=== PATIENT | female | born 2005 | race Caucasian/White ===

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

== ENCOUNTER 2023-01-10 00:10 | Emergency (ER) | payer SELFPAY ==
[~2023-01-10] VITALS: Ht 157.5 cm; Wt 49.9 kg
[~2023-01-10 00:10] MED LIST changes: +ATA25 PO; +KEN.1O TP
[2023-01-10 00:19] VITALS: BP 123/74; PULSE 72; RESP 16; TEMP 97.6; O2SAT 99
== END 2023-01-10 01:02 | disposition left against medical advice (07) ==
LOC: MED 00:10
DX: T18.8XXA Foreign body in other parts of alimentary tract, initial encounter (principal); Z53.21 Procedure and treatment not carried out due to patient leaving prior to being seen by health care provider; X58.XXXA Exposure to other specified factors, initial encounter; Y92.89 Other specified places as the place of occurrence of the external cause; Y93.89 Activity, other specified; Y99.8 Other external cause status
CPT/HCPCS: 99281

== ENCOUNTER 2023-10-06 11:28 | Emergency (ER) | payer OTHER ==
[~2023-10-06] VITALS: Ht 157.5 cm; Wt 49.0 kg
[2023-10-06 11:33] VITALS: BP 146/69; PULSE 76; RESP 18; TEMP 98.2; O2SAT 97
[2023-10-06 12:22] LABS: EOSINOPHILS % (AUTO) 0.1 % (0.0-4.0); HEMATOCRIT 42.7 % (36-48); HEMOGLOBIN 14.7 g/dL (12.0-16.0); LYMPHOCYTES # (AUTO) 0.5 K/uL (2.5-16.5); LYMPHOCYTES % (AUTO) 3.4 % (20.5-51.1); MEAN CORPUSCULAR HEMOGLOBIN 30 pg (27-31); MEAN CORPUSCULAR HGB CONC 34 g/dL (33-37); MEAN CORPUSCULAR VOLUME 87.2 fL (80-94); MONOCYTES # (AUTO) 0.6 K/uL (0.8-1.0); MONOCYTES % (AUTO) 3.6 % (1.7-9.3); NEUTROPHILS # (AUTO) 14.8 K/uL (1.8-7.7); NEUTROPHILS % (AUTO) 92.9 % (42.2-75.2); PLATELET COUNT (AUTO) 212 K/uL (140-450); RED CELL DISTRIBUTION WIDTH 13.1 % (11.6-13.7)
[2023-10-06] MEDS: ONDANSETRON 4 MG/2 ML VIAL IVP ONE (12:33)
[2023-10-06] MEDS: NACL 0.9% 1,000 ML IV ONE (12:34)
[2023-10-06 12:42] LABS: ALBUMIN 4.5 g/dL (3.4-5.0); ANION GAP 14.7 (8-16); CALCIUM 9.3 mg/dL (8.5-10.1); CARBON DIOXIDE 25.9 mmol/L (21-32); CREATININE 0.9 mg/dL (0.6-1.3); POTASSIUM 3.6 mmol/L (3.5-5.1); TOTAL BILIRUBIN 1.3 mg/dL (0.0-1.0)
[2023-10-06 13:19] VITALS: BP 112/65; PULSE 70; RESP 16; TEMP 98; O2SAT 99
[2023-10-06] MEDS ORDERED: ONDA-188 SL (13:27)
== END 2023-10-06 13:40 | disposition home or self-care (01) ==
LOC: MED 11:28
DX: R11.2 Nausea with vomiting, unspecified (principal); R19.7 Diarrhea, unspecified; R10.9 Unspecified abdominal pain; Z79.899 Other long term (current) drug therapy
CPT/HCPCS: 36415; 80053; 81025; 83690; 84703; 85025; 96361; 96374; 99283; J2405; J7030